=== PATIENT | female | born 1965 | race African-American/Black ===

== ENCOUNTER 2022-11-26 18:59 | Emergency (ER) | payer MEDICAID, OTHER ==
[~2022-11-26] VITALS: Ht 180.3 cm; Wt 65.0 kg
[~2022-11-26 18:59] MED LIST: FERR-71 PO
[2022-11-26 19:06] VITALS: BP 148/92
== END 2022-11-27 04:11 | disposition left against medical advice (07) ==
LOC: ER 18:59
DX: Z53.21 Procedure and treatment not carried out due to patient leaving prior to being seen by health care provider (principal); R07.89 Other chest pain
CPT/HCPCS: 93005